=== PATIENT | female | born 1990 | race Caucasian/White ===

== ENCOUNTER → 2016-10-05 | Outpatient (CLI) | payer MEDICAID ==
[~2016-10-05] MED LIST: ACET50TA PO; ACET65TA OR; ANUS2.5C2 TOP; COLA100C3 PO; COLA50CA3 PO; IBUP40TA PO; MOM30SS PO; MOTR200T44 PO; NUPE1OIN2 TOP; No Historical Meds; Norco PO; PERC5TAB6 PO; PRENTAB66 PO; VITAPRTA PO
--- NOTE | 2016-10-06 08:12 | REP ---
RIGHT FINGERS, FOUR VIEWS: HISTORY: Thumb injury. There is no acute fracture or dislocation. The joint spaces are normal in appearance. IMPRESSION: There is no acute fracture or dislocation. Signed by Grzegorz Snider MD 10/06/2016 09:20 A
== END ==
LOC: M RAD 13:20
PROVIDERS: ATTEND Physician Assistant
DX: S69.81XA Other specified injuries of right wrist, hand and finger(s), initial encounter (principal); X58.XXXA Exposure to other specified factors, initial encounter; Y92.89 Other specified places as the place of occurrence of the external cause

== ENCOUNTER 2017-07-17 13:08 | Emergency (ER) | payer MEDICAID | END 2017-07-17 14:53 | disposition home or self-care (01) | LOC: M ED 13:08 | DX: J02.9 Acute pharyngitis, unspecified (principal) | CPT/HCPCS: 99283 ==

== ENCOUNTER 2017-11-01 22:19 | Emergency (ER) | payer SELFPAY, MEDICAID ==
[2017-11-02 00:30] LABS: AMORPHOUS SEDIMENT RFX SMALL (NEGATIVE); KETONE, URINE AUTO RFX NEGATIVE (NEGATIVE); LEUKOCYTE ESTERASE UR AUTO RFX NEGATIVE (NEGATIVE); MUCUS, URINE RFX SMALL (NEGATIVE); NITRITE, URINE AUTO RFX NEGATIVE (NEGATIVE); RBC, URINE AUTO RFX 7 /HPF (0-3); SPECIFIC GRAVITY UR AUTO RFX 1.018 (1.002-1.035); SQUAM EPITHELIAL CELL UR AURFX 1 /HPF (0-6); WBC, URINE AUTO RFX 1 /HPF (0-3)
[2017-11-02 00:37] LABS: HEMATOCRIT 33.6 % (36.0-47.0); HEMOGLOBIN 11.1 g/dl (12.0-15.5); MEAN CORPUSCULAR HEMOGLOBIN 26.6 pg (27.0-33.0); MEAN CORPUSCULAR VOLUME 80.4 fl (80.0-96.0); PLATELET COUNT, AUTOMATED 293 10^3/uL (150-450); RED BLOOD COUNT 4.18 10^6/uL (4.00-5.40); RED CELL DISTRIBUTION WIDTH 13.8 % (11.5-14.5); WHITE BLOOD COUNT 11.7 10^3/uL (4.0-10.0)
[2017-11-02 00:44] LABS: ADD MANUAL DIFFER YES; DIFF SLIDE NUMBER 74; POSITIVE DIFF POS FLAG
[2017-11-02] MEDS: KETOROLAC 30 MG/ML VIAL (J1885) IV (00:46)
[2017-11-02] MEDS: ONDANSETRON 4MG/2ML VIAL (J2405) IV (00:46)
[2017-11-02] MEDS: NS 1,000 ML IV (00:46)
[2017-11-02 00:59] LABS: ALBUMIN 3.8 GM/DL (3.2-5.2); ALBUMIN/GLOBULIN RATIO 1.06 (1.00-1.93); ALKALINE PHOSPHATASE 77 U/L (45-117); ALT/SGPT 23 U/L (12-78); AMYLASE 21 U/L (25-115); ANION GAP 5 MEQ/L (8-16); AST/SGOT 20 U/L (7-37); BILIRUBIN,DIRECT 0.1 MG/DL (0.0-0.2); BILIRUBIN,TOTAL 0.4 MG/DL (0.2-1.0); BLOOD UREA NITROGEN 13 MG/DL (7-18); CALCIUM LEVEL 8.6 MG/DL (8.5-10.1); CARBON DIOXIDE LEVEL 27 MEQ/L (21-32); CHLORIDE LEVEL 109 MEQ/L (98-107); GLOMERULAR FILTRATION RATE > 60.0 (>60); GLUCOSE, FASTING 89 MG/DL (70-100); LIPASE 150 U/L (73-393); POTASSIUM SERUM 3.4 MEQ/L (3.5-5.1); SODIUM LEVEL 141 MEQ/L (136-145); TOTAL PROTEIN 7.4 GM/DL (6.4-8.2)
[2017-11-02 01:02] LABS: EOSINOPHILS 2 % (0-5); LYMPHOCYTES 45 % (16-52); MONOCYTES 4 % (0-8); NEUTROPHILS 49 % (35-75); PLATELET ESTIMATE NORMAL (NORMAL)
== END 2017-11-02 02:41 | disposition home or self-care (01) ==
LOC: M ED 22:19
DX: K80.70 Calculus of gallbladder and bile duct without cholecystitis without obstruction (principal)
CPT/HCPCS: J2405

== ENCOUNTER 2017-11-28 09:27 | Day surgery (SDC) | payer SELFPAY, MEDICAID ==
[2017-11-28] MEDS: NS 1,000 ML IV ×3 (10:00→23:48)
[2017-11-28] MEDS: MORPHINE 4 MG/ML 1ML VIAL/SYRINGE (J2270) IV ×2 (10:02→11:46)
[2017-11-28] MEDS: METOCLOPRAMIDE INJ 10MG/2ML VIAL (J2765) IV (10:02)
[2017-11-28 10:05] LABS: AMORPHOUS SEDIMENT RFX SMALL (NEGATIVE); KETONE, URINE AUTO RFX TRACE mg/dL (NEGATIVE); LEUKOCYTE ESTERASE UR AUTO RFX NEGATIVE (NEGATIVE); MUCUS, URINE RFX SMALL (NEGATIVE); NITRITE, URINE AUTO RFX NEGATIVE (NEGATIVE); RBC, URINE AUTO RFX 5 /HPF (0-3); SPECIFIC GRAVITY UR AUTO RFX 1.016 (1.002-1.035); SQUAM EPITHELIAL CELL UR AURFX 0 /HPF (0-6); WBC, URINE AUTO RFX 2 /HPF (0-3)
[2017-11-28 10:23] LABS: BASO % 0.3 % (0.0-1.0); EOS % 0.3 % (0.0-3.0); HEMATOCRIT 38.8 % (36.0-47.0); HEMOGLOBIN 12.7 g/dl (12.0-15.5); IMMATURE GRANULOCYTE % 0.6 % (0-3.0); LYMPH # 1.6 10^3/uL (1.5-6.5); LYMPH % 10.7 % (24.0-44.0); MEAN CORPUSCULAR HEMOGLOBIN 26.2 pg (27.0-33.0); MEAN CORPUSCULAR HGB CONC 32.7 g/dl (32.0-36.5); MEAN CORPUSCULAR VOLUME 80.2 fl (80.0-96.0); MONO # 0.4 10^3/uL (0.0-0.8); MONO % 2.8 % (0.0-5.0); NEUTROPHILS # 12.3 10^3/uL (1.8-7.7); NEUTROPHILS % 85.3 % (36.0-66.0); PLATELET COUNT, AUTOMATED 311 10^3/uL (150-450); RED BLOOD COUNT 4.84 10^6/uL (4.00-5.40); RED CELL DISTRIBUTION WIDTH 13.4 % (11.5-14.5); WHITE BLOOD COUNT 14.5 10^3/uL (4.0-10.0)
[2017-11-28 10:52] LABS: ALBUMIN 4.1 GM/DL (3.2-5.2); ALBUMIN/GLOBULIN RATIO 0.98 (1.00-1.93); ALKALINE PHOSPHATASE 92 U/L (45-117); ALT/SGPT 35 U/L (12-78); AMYLASE 26 U/L (25-115); ANION GAP 9 MEQ/L (8-16); AST/SGOT 19 U/L (7-37); BILIRUBIN,DIRECT 0.1 MG/DL (0.0-0.2); BILIRUBIN,TOTAL 0.4 MG/DL (0.2-1.0); BLOOD UREA NITROGEN 14 MG/DL (7-18); CARBON DIOXIDE LEVEL 26 MEQ/L (21-32); CHLORIDE LEVEL 107 MEQ/L (98-107); CREATININE FOR GFR 0.85 MG/DL (0.55-1.30); GLOMERULAR FILTRATION RATE > 60.0 (>60); GLUCOSE, FASTING 126 MG/DL (70-100); LIPASE 121 U/L (73-393); POTASSIUM SERUM 3.9 MEQ/L (3.5-5.1); SODIUM LEVEL 142 MEQ/L (136-145); TOTAL PROTEIN 8.3 GM/DL (6.4-8.2)
[2017-11-28] MEDS: PIPERACILLIN/TAZOBACTAM SOD 3.375 GM in D5W MINI-BAG PLUS 50 ML IV ×3 (12:12→23:48)
[2017-11-28] MEDS ORDERED: fentaNYL 250 MCG/5 ML INJECTION (J3010) As Ordered (12:57)
[2017-11-28] MEDS ORDERED: PROPOFOL 200 MG/20 ML VIAL As Ordered (12:57)
[2017-11-28] MEDS ORDERED: LIDOCAINE 2% INJ 100 MG/5 ML SDV (FOR ANES.) As Ordered (12:57)
[2017-11-28] MEDS ORDERED: ROCURONIUM BROMIDE 50 MG/5 ML VIAL As Ordered (12:57)
[2017-11-28] MEDS ORDERED: MIDAZOLAM INJ 2 MG/2 ML VIAL (J2250) As Ordered (12:57)
[2017-11-28] MEDS ORDERED: KETOROLAC 60 MG/2 ML VIAL (J1885) As Ordered (12:58)
[2017-11-28] MEDS ORDERED: ONDANSETRON 4MG/2ML VIAL (J2405) As Ordered ×2 (12:58→13:23)
[2017-11-28] MEDS ORDERED: dexameTHASONE 4 MG/ML 1ML VIAL (J1100) As Ordered ×2 (12:58)
[2017-11-28 13:17] LABS: CONTROL LINE UCG INT CTR LINE PRESENT; URINE PREG TEST NEGATIVE (NEGATIVE)
[2017-11-28] MEDS ORDERED: SUCCINYLCHOLINE 100 MG/5 ML SYRINGE (J0330) As Ordered (13:42)
[2017-11-28] MEDS ORDERED: GLYCOPYRROLATE INJ 0.2 MG/ML 2 ML VIAL As Ordered (14:30)
[2017-11-28] MEDS ORDERED: NEOSTIGMINE 10 MG/10 ML VIAL (J2710) As Ordered (14:30)
[2017-11-28] MEDS: BUPIVACAINE/EPIN 0.25% 30 ML VIAL As Ordered (14:41)
[2017-11-28] MEDS ORDERED: MORPHINE 4 MG/ML 1ML VIAL/SYRINGE (J2270) IV (15:00)
[2017-11-28] MEDS ORDERED: NORCO, ANEXSIA 5/325MG TABLET (HYDROcodone/ACETAMINOPHEN) PO ×2 (15:00)
[2017-11-28] MEDS ORDERED: KETOROLAC 30 MG/ML VIAL (J1885) IV (15:00)
[2017-11-28] MEDS ORDERED: fentaNYL 100 MCG/2 ML INJECTION (J3010) IV (15:15)
[2017-11-28] MEDS ORDERED: ONDANSETRON 4MG/2ML VIAL (J2405) IV (15:15)
[2017-11-28] MEDS: LR 1,000 ML IV (15:58)
[2017-11-28] MEDS: PANTOPRAZOLE 40MG TAB (PROTONIX) PO (16:05)
[2017-11-28] MEDS: ONDANSETRON 4MG/2ML VIAL (J2405) IV (18:55)
[2017-11-29] MEDS: PIPERACILLIN/TAZOBACTAM SOD 3.375 GM in D5W MINI-BAG PLUS 50 ML IV (05:42)
[2017-11-29] MEDS: PANTOPRAZOLE 40MG TAB (PROTONIX) PO (08:23)
[2017-11-29] MEDS: NS 1,000 ML IV (08:23)
[2017-11-29] MEDS: AUGMENTIN 500 MG TAB PO (11:30)
== END 2017-11-29 13:10 | disposition home or self-care (01) ==
LOC: M SDC 11-29 13:10 → M ED 09:27 → M SDC 12:27 → M MS5PR 15:53
DX: K81.9 Cholecystitis, unspecified (principal); J45.909 Unspecified asthma, uncomplicated; E66.9 Obesity, unspecified; Z79.899 Other long term (current) drug therapy
CPT/HCPCS: 47562

== ENCOUNTER 2019-05-04 09:19 | Emergency (ER) | payer OTHER, SELFPAY ==
[~2019-05-04] VITALS: Ht 167.6 cm; Wt 111.0 kg
[~2019-05-04 09:19] MED LIST changes: -ACET50TA PO; +AMOX500T2 PO; +AMOX875T PO; -COLA100C3 PO; +COLA100C5 PO; +HYDR-3713 PO; +HYDR-3715 PO; +IBUP-1114 PO; -IBUP40TA PO; +MAPA500T17 PO; +MAPA500T2 PO; +PERC5TAB12 PO; -PERC5TAB6 PO; +ZOFR4TAB14 PO; +naproxen PO
[2019-05-04] MEDS ORDERED: KETOROLAC 30 MG/ML VIAL (J1885) IV ONE (10:00)
[2019-05-04] MEDS ORDERED: ONDANSETRON 4MG/2ML VIAL (J2405) IV ONE (10:00)
[2019-05-04 10:17] LABS: BASO % 0.3 % (0.0-1.0); EOS # 0.1 10^3/uL (0.0-0.5); EOS % 0.5 % (0.0-3.0); HEMOGLOBIN 13.9 g/dl (12.0-15.5); LYMPH # 2.5 10^3/uL (1.5-5.0); LYMPH % 19.7 % (24.0-44.0); MEAN CORPUSCULAR HGB CONC 32.3 g/dl (32.0-36.5); MEAN CORPUSCULAR VOLUME 80.5 fl (80.0-96.0); MONO # 0.7 10^3/uL (0.0-0.8); MONO % 5.3 % (0.0-5.0); NEUTROPHILS # 9.5 10^3/uL (1.5-8.5); NEUTROPHILS % 73.7 % (36.0-66.0); PLATELET COUNT, AUTOMATED 334 10^3/uL (150-450); RED BLOOD COUNT 5.34 10^6/uL (4.00-5.40); WHITE BLOOD COUNT 12.8 10^3/uL (4.0-10.0)
[2019-05-04] MEDS ORDERED: ISOVUE-370 76% 100ML VIAL (Q9967) As Ordered ONE (10:40)
[2019-05-04 10:49] LABS: ALBUMIN 4.1 GM/DL (3.2-5.2); BILIRUBIN,DIRECT 0.1 MG/DL (0.0-0.2); BILIRUBIN,TOTAL 0.6 MG/DL (0.2-1.0); TOTAL PROTEIN 8.4 GM/DL (6.4-8.2)
[2019-05-04] MEDS ORDERED: MORPHINE 2 MG/ML 1ML VIAL (J2270) IV ONE ×2 (11:00→13:00)
--- NOTE | 2019-05-04 12:35 | REP ---
Clinical: Flank pain. Technique: Axial noncontrast images from the lung bases to the pubic symphysis with coronal and sagittal re-formations. Findings: Moderate acute right-sided obstructive uropathy with edematous enlargement to the right kidney, perinephric/periureteral stranding, and hydronephrosis secondary to a 3 mm obstructing calculus in the proximal right ureter (images 85 - 86). Multiple nonobstructing bilateral renal calculi measure 1-2 mm. Left kidney is without hydronephrosis or obstruction. Bladder is unremarkable. Liver, spleen, pancreas, and bilateral adrenal glands are normal. Evidence of prior cholecystectomy. The enteric system is without obstruction or acute inflammatory process. Pelvis demonstrates normal uterus 6 cm adnexal cyst noted. No ascites. No free air. No adenopathy. Abdominal aorta without aneurysm. Musculoskeletal structures are intact. Lung bases are clear. Impression: 1. Moderate acute right-sided obstructive uropathy with a 3 mm calculus in the proximal right ureter. Multiple bilateral nonobstructing nephroliths measure up to 2 mm. 2. 6 cm pelvic/adnexal cyst warrants followup pelvic ultrasound. Electronically Signed by David Leon MD 05/04/2019 11:24 A
[2019-05-04] MEDS ORDERED: METOCLOPRAMIDE INJ 10MG/2ML VIAL (J2765) IV ONE (13:00)
[2019-05-04] MEDS ORDERED: MORPHINE 4 MG/ML 1ML VIAL/SYRINGE (J2270) IV ONE (14:15)
--- NOTE | 2019-05-04 14:40 | REP ---
PELVIC SONOGRAPHY: HISTORY: Abdominal pain. 6 cm right ovarian cyst seen on CT study. Comparison CT is from earlier this date. FINDINGS: Transabdominal and transvaginal scanning are included. Uterine dimensions are normal at 9.1 x 4.3 x 4.8 cm. Endometrial echo is 1.4 cm thick and centrally placed. The visualized urinary bladder dotson are smooth. There is a 6.5 x 6.7 x 5.0 cm sonographically simple cystic lesion in the left ovary. This corresponds to the CT findings. Inclusive of this, the left ovary measures 7.8 x 5.7 x 7.1 cm. Doppler flow is seen in the left ovary with resistive index by Doppler 0.56. A normal right ovary seen measuring 2.6 x 1.6 x 2.3 cm. Its Doppler flow is present resistive index 0.46. Comparison sonography from the November 28, 2010 showed a 5.8 cm simple cyst in the left adnexa as well. IMPRESSION: There is a 6.7 x 6.5 x 5.0 cm simple cyst in the left adnexa . No other significant sonographic findings. There is Doppler flow present in both ovaries. Electronically Signed by Abe Lopez MD 05/04/2019 02:47 P
[2019-05-04] MEDS ORDERED: PERCOCET 5MG/325MG TAB PO ONE (15:00)
[2019-05-04] MEDS ORDERED: PERC5TAB12 PO (15:08)
[2019-05-04] MEDS ORDERED: MACR100C43 PO (15:08)
[2019-05-04] MEDS ORDERED: ONDA4TAB6 PO (15:08)
[2019-05-04] MEDS ORDERED: FLOM0.4C39 PO (15:08)
[2019-05-04 15:24] VITALS: BP 148/91
--- NOTE | 2019-05-10 13:01 | ED PDOC ---
Post-Departure Follow-Up dr ruiz faxed formal report of pelvic us for fu Shannan Mayorga MD May 10, 2019 13:01
== END 2019-05-04 15:27 | disposition home or self-care (01) ==
LOC: M ED 09:19
DX: N20.2 Calculus of kidney with calculus of ureter (principal); R03.0 Elevated blood-pressure reading, without diagnosis of hypertension; N83.292 Other ovarian cyst, left side; Z79.899 Other long term (current) drug therapy
CPT/HCPCS: 74176; 76830; 76856; 80047; 80076; 81001; 83690; 85025; 87086; 93976; 96374; 96375; 96376; 99284; J1885; J2270; J2405; J2765

== ENCOUNTER → 2019-10-28 | Outpatient (REF) | payer OTHER ==
[~2019-10-28] MED LIST changes: +FLOM0.4C39 PO; +MACR100C43 PO; +ONDA4TAB6 PO
[2019-10-28 13:13] LABS: BASO % 0.3 % (0.0-1.0); EOS # 0.1 10^3/uL (0.0-0.5); EOS % 1.4 % (0.0-3.0); HEMATOCRIT 35.8 % (36.0-47.0); HEMOGLOBIN 11.8 g/dl (12.0-15.5); LYMPH # 2.5 10^3/uL (1.5-5.0); LYMPH % 27.7 % (24.0-44.0); MEAN CORPUSCULAR VOLUME 81.9 fl (80.0-96.0); MONO # 0.5 10^3/uL (0.0-0.8); MONO % 5.9 % (0.0-5.0); NEUTROPHILS # 5.9 10^3/uL (1.5-8.5); NEUTROPHILS % 64.4 % (36.0-66.0); PLATELET COUNT, AUTOMATED 246 10^3/uL (150-450); RED BLOOD COUNT 4.37 10^6/uL (4.00-5.40); WHITE BLOOD COUNT 9.2 10^3/uL (4.0-10.0)
[2019-10-28 20:41] LABS: FREE T4 1.03 NG/DL (0.76-1.46); HCG, SERUM QUANTITATIVE 59026 MIU/ML
[2019-10-29 12:12] LABS: HIV 1&2 SCREEN CENTAUR NEGATIVE (NEGATIVE)
== END ==
LOC: M LAB REF 12:08
PROVIDERS: ATTEND Obstetrics & Gynecology
DX: O36.80X0 Pregnancy with inconclusive fetal viability, not applicable or unspecified (principal)

== ENCOUNTER → 2019-10-29 | Outpatient (CLI) | payer OTHER ==
--- NOTE | 2019-10-29 14:36 | REP ---
OBSTETRIC SONOGRAPHY: HISTORY: Supervision of . FINDINGS: Transabdominal scanning demonstrates a single living intrauterine fetus. motion is observed and heart rate is recorded at 163 beats per minute. A anterofundal placenta is seen without evidence of abruption. Amniotic fluid is subjectively normal. No extrauterine abnormality observed. The crown-rump length of the embryonic pole is 51 mm. This corresponds with a gestational age estimate of 11-week 6 days. No extrauterine abnormality observed. No gross anomaly is seen. IMPRESSION: Viable single intrauterine gestation 11 weeks 6 days by crown-rump length. GASTON by sonography May 13, 2020. No complications seen.
== END ==
LOC: M WHC 10:43
PROVIDERS: ATTEND Obstetrics & Gynecology
DX: Z36.89 Encounter for other specified antenatal screening (principal); Z3A.11 11 weeks gestation of pregnancy

== ENCOUNTER → 2019-11-04 | Outpatient (CLI) | payer OTHER ==
[2019-11-04 12:37] LABS: CREATININE 24 HOUR, URINE 2421.5 MG/24HR (600-1800); TOTAL PROTEIN 24 HOUR URINE 368.3 MG/24HR (50-150); URINE TOTAL PROTEIN 25.4 MG/DL (0-12)
[2019-11-04 12:42] LABS: ALBUMIN 3.4 GM/DL (3.2-5.2); ALT/SGPT 20 U/L (12-78); BILIRUBIN,TOTAL 0.4 MG/DL (0.2-1.0); BLOOD UREA NITROGEN 9 MG/DL (7-18); CALCIUM LEVEL 9.3 MG/DL (8.5-10.1); CARBON DIOXIDE LEVEL 24 MEQ/L (21-32); CHLORIDE LEVEL 108 MEQ/L (98-107); CREATININE FOR GFR 0.68 MG/DL (0.55-1.30); GLOMERULAR FILTRATION RATE > 60.0 (>60); GLUCOSE, FASTING 89 MG/DL (70-100); POTASSIUM SERUM 3.9 MEQ/L (3.5-5.1); SODIUM LEVEL 139 MEQ/L (136-145); TOTAL PROTEIN 7.2 GM/DL (6.4-8.2)
== END ==
LOC: M LAB 11:18
PROVIDERS: ATTEND Obstetrics & Gynecology
DX: I15.9 Secondary hypertension, unspecified (principal)

== ENCOUNTER → 2019-12-27 | Outpatient (CLI) | payer OTHER ==
[~2019-12-27] MED LIST changes: +LABE300T2 PO
--- NOTE | 2019-12-27 12:22 | REP ---
OBSTETRIC SONOGRAPHY: HISTORY: Supervision of for anatomy. FINDINGS: Scanning through the gravid uterus demonstrates a living single intrauterine gestation in a changing lie, transverse, head left at the close of the study. heart rate is recorded at 139 beats per minute. An anterior grade 0 placenta is seen without evidence of previa. Amniotic fluid is subjectively normal. Closed cervical length measured transabdominally is 3.8 cm. No extrauterine abnormalities observed. Exam quality is inhibited to some degree by position and maternal body habitus. Four-chamber heart, right ventricular outflow tract views, and spine are less than optimally seen. The following anatomic structures are identified and felt to be unremarkable: cranium, choroid plexus, cavum, cerebellum and posterior fossa, face and profile, left ventricular outflow tract view, diaphragm, left-sided stomach, abdominal wall cord insertion, three-vessel cord, kidneys and bladder, upper and lower extremities. Biometry Chart: BPD 4.7 cm = 20 weeks 2 days HC 17.9 cm = 20 weeks 2 days AC 15.1 cm = 20 weeks 2 days FL 3.3 cm = 20 weeks 3 days HL 3.1 cm = 20 weeks 3 days CD 2.0 cm = 19 weeks 2 days HC/AC ratio normal 1.18 Cephalic index normal 0.73. Estimated weight through 50 grams, 0 pounds 12 ounces, 60th percentile for 20 weeks 0 days. IMPRESSION: Single living intrauterine gestation at 20 weeks 1 day by today's composite sonographic criteria. Expected gestational age estimate based on prior sonography is 20 weeks 0 days. GASTON by prior sonography May 15, 2020. anatomic survey is incomplete regarding right ventricular outflow tract, four-chamber heart, and spine visualization.
== END ==
LOC: M WHC 10:19
PROVIDERS: ATTEND Obstetrics & Gynecology
DX: Z34.82 Encounter for supervision of other normal pregnancy, second trimester (principal); Z3A.20 20 weeks gestation of pregnancy

== ENCOUNTER → 2020-01-17 | Outpatient (CLI) | payer OTHER ==
--- NOTE | 2020-03-03 14:42 | REP ---
OB ULTRASOUND NOTE: The study was performed 01/17/2020 and is submitted for interpretation of 02/16/2020 due to catastrophic computer system failure at [facility]. REASON FOR EXAM: Follow-up anatomy scan of 12/27/2019. TECHNIQUE: Real-time sonographic evaluation of gravid uterus performed. There is a single living intrauterine gestation. Based on todays ultrasound measurements, composite estimated gestational age is 23 weeks 1 day. MEASUREMENTS: BPD 57 mm 23 weeks 4 days Head Circumference 181 mm 23 weeks 0 days HC 208 mm 23 weeks 0 days Femur Length 40 mm 23 weeks 0 days Estimated weight 552 grams. This is reportedly at 42nd percentile. Amniotic fluid appears within normal limits. The cervix is closed and measures 3.4 cm in length. The spine, four chamber heart, and ventricular outflow tracts are visualized on todays exam and are grossly unremarkable. They were not well seen on the prior study. Todays study is somewhat limited due to maternal body habitus. position is transverse. Placenta is posterior and grade 0 with no previa or abruption. MTDD
== END ==
LOC: M WHC 05:55
PROVIDERS: ATTEND Obstetrics & Gynecology
DX: Z34.82 Encounter for supervision of other normal pregnancy, second trimester (principal); Z36.2 Encounter for other antenatal screening follow-up; Z3A.23 23 weeks gestation of pregnancy

== ENCOUNTER → 2020-02-24 | Outpatient (CLI) | payer OTHER ==
[2020-02-24 13:13] LABS: HEMATOCRIT 32.9 % (36.0-47.0); HEMOGLOBIN 10.9 g/dl (12.0-15.5); MEAN CORPUSCULAR HEMOGLOBIN 28.7 pg (27.0-33.0); MEAN CORPUSCULAR HGB CONC 33.1 g/dl (32.0-36.5); MEAN CORPUSCULAR VOLUME 86.6 fl (80.0-96.0); PLATELET COUNT, AUTOMATED 294 10^3/uL (150-450); WHITE BLOOD COUNT 11.1 10^3/uL (4.0-10.0)
== END ==
LOC: M LAB 09:47
PROVIDERS: ATTEND Obstetrics & Gynecology
DX: Z34.83 Encounter for supervision of other normal pregnancy, third trimester (principal); Z3A.00 Weeks of gestation of pregnancy not specified

== ENCOUNTER → 2020-03-16 | Outpatient (CLI) | payer OTHER | LOC: M LAB 10:16 | PROVIDERS: ATTEND Advanced Practice Midwife | DX: Z34.82 Encounter for supervision of other normal pregnancy, second trimester (principal); Z3A.00 Weeks of gestation of pregnancy not specified ==

== ENCOUNTER 2020-03-20 13:58 | Outpatient (CLI) | payer OTHER ==
[~2020-03-20] VITALS: Ht 167.6 cm; Wt 114.3 kg
[~2020-03-20 13:58] MED LIST changes: -LABE300T2 PO
[2020-03-20 14:21] VITALS: BP 157/84
[2020-03-20 14:26] VITALS: BP 160/81
[2020-03-20] MEDS ORDERED: LR 1,000 ML IV ONE (14:45)
[2020-03-20 14:54] LABS: APPEARANCE, URINE HAZY (CLEAR); BACTERIA, URINE AUTO NEGATIVE (NEGATIVE); BILIRUBIN, URINE AUTO NEGATIVE (NEGATIVE); BLOOD, URINE BLOOD 2+ (NEGATIVE); COLOR, URINE YELLOW (YELLOW); GLUCOSE, URINE (UA) AUTO NEGATIVE (NEGATIVE); KETONE, URINE AUTO NEGATIVE (NEGATIVE); LEUKOCYTE ESTERASE, URINE AUTO NEGATIVE (NEGATIVE); MUCUS, URINE SMALL (NEGATIVE); NITRITE, URINE AUTO NEGATIVE (NEGATIVE); PROTEIN, URINE AUTO 1+ mg/dL (NEGATIVE); RBC, URINE AUTO 60 /HPF (0-3); SPECIFIC GRAVITY URINE AUTO 1.025 (1.002-1.035); SQUAMOUS EPITHELIAL CELL UR AU 9 /HPF (0-6); UROBILINOGEN, URINE AUTO 0.2 mg/dL (0.0-2.0); WBC, URINE AUTO 5 /HPF (0-3)
[2020-03-20 15:08] LABS: BASO # 0.1 10^3/uL (0.0-0.2); BASO % 0.3 % (0.0-1.0); EOS # 0.1 10^3/uL (0.0-0.5); EOS % 0.8 % (0.0-3.0); HEMOGLOBIN 10.8 g/dl (12.0-15.5); LYMPH # 2.3 10^3/uL (1.5-5.0); LYMPH % 14.5 % (24.0-44.0); MEAN CORPUSCULAR HEMOGLOBIN 28.3 pg (27.0-33.0); MEAN CORPUSCULAR HGB CONC 33.8 g/dl (32.0-36.5); MEAN CORPUSCULAR VOLUME 83.8 fl (80.0-96.0); MONO % 6.7 % (0.0-5.0); PLATELET COUNT, AUTOMATED 252 10^3/uL (150-450); RED BLOOD COUNT 3.82 10^6/uL (4.00-5.40); WHITE BLOOD COUNT 15.6 10^3/uL (4.0-10.0)
[2020-03-20] MEDS ORDERED: MAPA500T2 PO (15:38)
[2020-03-20] MEDS ORDERED: LABE300T2 PO (15:39)
== END 2020-03-20 16:27 | disposition home or self-care (01) ==
LOC: M LDO 13:58
PROVIDERS: ATTEND Obstetrics & Gynecology
DX: O99.891 Other specified diseases and conditions complicating pregnancy (principal); O23.43 Unspecified infection of urinary tract in pregnancy, third trimester; Z3A.32 32 weeks gestation of pregnancy

== ENCOUNTER → 2020-04-06 | Outpatient (CLI) | payer OTHER ==
[~2020-04-06] MED LIST changes: +LABE300T2 PO
[2020-04-06 08:47] LABS: HEMATOCRIT 30.2 % (36.0-47.0); HEMOGLOBIN 9.8 g/dl (12.0-15.5); MEAN CORPUSCULAR HEMOGLOBIN 27.7 pg (27.0-33.0); MEAN CORPUSCULAR HGB CONC 32.5 g/dl (32.0-36.5); MEAN CORPUSCULAR VOLUME 85.3 fl (80.0-96.0); PLATELET COUNT, AUTOMATED 316 10^3/uL (150-450); RED BLOOD COUNT 3.54 10^6/uL (4.00-5.40); WHITE BLOOD COUNT 10.5 10^3/uL (4.0-10.0)
[2020-04-06 09:16] LABS: URINE TOTAL PROTEIN 31.7 MG/DL (0-12)
[2020-04-06 09:19] LABS: ALT/SGPT 11 U/L (12-78); BILIRUBIN,TOTAL 0.3 MG/DL (0.2-1.0); CREATININE FOR GFR 0.73 MG/DL (0.55-1.30); GLOMERULAR FILTRATION RATE > 60.0 (>60); LDH LACTATE DEHYDROGENASE 131 U/L (84-246); URIC ACID 4.4 MG/DL (2.6-6.0)
[2020-04-06 14:39] LABS: CREATININE 24 HOUR, URINE 2371.5 MG/24HR (600-1800); TOTAL PROTEIN 24 HOUR URINE 491.3 MG/24HR (50-150)
== END ==
LOC: M LAB 08:15
PROVIDERS: ATTEND Advanced Practice Midwife
DX: O12.13 Gestational proteinuria, third trimester (principal); Z3A.00 Weeks of gestation of pregnancy not specified

== ENCOUNTER → 2020-04-11 | Outpatient (REF) | payer OTHER | LOC: M LAB REF 17:04 | PROVIDERS: ATTEND Obstetrics & Gynecology | DX: Z34.83 Encounter for supervision of other normal pregnancy, third trimester (principal); Z3A.00 Weeks of gestation of pregnancy not specified ==

== ENCOUNTER 2020-05-17 10:51 | Inpatient (IN) | payer OTHER ==
[~2020-05-17] VITALS: Ht 167.6 cm; Wt 115.0 kg
[2020-05-17] VITALS (10 sets, daily range): BP systolic 139–190; BP diastolic 75–101
[2020-05-17] MEDS ORDERED: LACTATED RINGERS IV ONE (11:30)
[2020-05-17 12:28] LABS: HEMATOCRIT 31.5 % (36.0-47.0); HEMOGLOBIN 10.2 g/dl (12.0-15.5); MEAN CORPUSCULAR HEMOGLOBIN 27.6 pg (27.0-33.0); MEAN CORPUSCULAR HGB CONC 32.4 g/dl (32.0-36.5); MEAN CORPUSCULAR VOLUME 85.4 fl (80.0-96.0); PLATELET COUNT, AUTOMATED 283 10^3/uL (150-450); RED BLOOD COUNT 3.69 10^6/uL (4.00-5.40); WHITE BLOOD COUNT 12.8 10^3/uL (4.0-10.0)
[2020-05-17] MEDS ORDERED: LR 1,000 ML IV SCH (12:30)
[2020-05-17 12:53] LABS: ALT/SGPT 14 U/L (12-78); BILIRUBIN,TOTAL 0.3 MG/DL (0.2-1.0); CREATININE FOR GFR 0.73 MG/DL (0.55-1.30); GLOMERULAR FILTRATION RATE > 60.0 (>60); LDH LACTATE DEHYDROGENASE 174 U/L (84-246); URIC ACID 4.2 MG/DL (2.6-6.0)
[2020-05-17] MEDS: miSOPROStol 50 MCG 1/2 TAB (S0191) PO SCH ×2 (13:28→19:10)
[2020-05-17] MEDS: LABETALOL 100 MG TAB PO SCH ×2 (13:49→21:14)
[2020-05-17] MEDS ORDERED: ceFAZolin SOD 2 GM in IV 1 EA IV ONE (22:15)
[2020-05-17] MEDS ORDERED: BICITRA 30ML SOLN UDC PO ONE (22:15)
[2020-05-17] MEDS ORDERED: BICITRA 30ML SOLN UDC As Ordered ONE (22:22)
[2020-05-17] MEDS ORDERED: ceFAZolin 2 GM/D5W 50 ML IV BAG (J0690 PER 500MG) As Ordered ONE (22:22)
[2020-05-17] MEDS ORDERED: ONDANSETRON 4MG/2ML VIAL As Ordered ONE (22:30)
[2020-05-17] MEDS ORDERED: dexameTHASONE 4 MG/ML 1ML VIAL (J1100 PER 1MG) As Ordered ONE (22:30)
[2020-05-17] MEDS ORDERED: OXYTOCIN INJ 10 UNITS/ML VIAL (J2590) As Ordered ONE (22:30)
[2020-05-17] MEDS ORDERED: MORPHINE PRES-FREE INJ 10 MG/10 ML VIAL (J2274) As Ordered ONE (22:33)
[2020-05-17] MEDS ORDERED: fentaNYL 100 MCG/2 ML INJECTION (J3010) As Ordered ONE (22:33)
[2020-05-17] MEDS ORDERED: OXYTOCIN DRIP 30 UNITS in IV 1 EA IV SCH (22:47)
[2020-05-17] MEDS ORDERED: ONDANSETRON 4MG/2ML VIAL IV PRN (22:56)
[2020-05-17] MEDS ORDERED: NALBUPHINE HCL 10 MG/ML AMP (J2300) IV PRN (22:56)
[2020-05-17] MEDS ORDERED: NALOXONE INJ 0.4MG/1ML VIAL (J2310 PER 1MG) IV PRN ×2 (22:56)
[2020-05-17] MEDS ORDERED: diphenhydrAMINE 50MG/ML VIAL (J1200) IV PRN (22:56)
[2020-05-17] MEDS ORDERED: METHYLERGONOVINE MALEATE 0.2 MG TAB PO PRN (23:00)
[2020-05-17] MEDS ORDERED: PERCOCET 5MG/325MG TAB PO PRN (23:00)
[2020-05-17] MEDS ORDERED: MOM 30ML SUSPENSION UDC PO PRN (23:00)
[2020-05-17] MEDS ORDERED: RHOGAM 300 MCG (1500 IU) INJ (J2790) IM SCH (23:00)
[2020-05-17] MEDS ORDERED: MEASLES,MUMPS,RUBELLA VACCINE INJ (MMR-II) (90707) SC SCH (23:00)
[2020-05-17] MEDS ORDERED: ePHEDrine SULFATE 25 MG/5 ML(5MG/ML) SYRINGE As Ordered ONE (23:01)
[2020-05-17 23:32] LABS: CORD GAS HCO3 A 25.4 MEQ/L; CORD GAS O2 SAT A 28.8 %; CORD GAS PCO2 A 58.9 mmHg; CORD GAS PH A 7.252 UNITS; CORD GAS PO2 A 16.3 mmHg; CORD GAS SBC A 20.4 MEQ/L; CORD GAS TCO2 A 27.2 MEQ/L
[2020-05-17 23:33] LABS: CORD GAS ABE V -4.8; CORD GAS HCO3 V 20.3 MEQ/L; CORD GAS O2 SAT V 80.9 %; CORD GAS PH V 7.346 UNITS; CORD GAS PO2 V 36.6 mmHg; CORD GAS SBC V 20.2 MEQ/L; CORD GAS TCO2 V 21.5 MEQ/L
[2020-05-18] VITALS (11 sets, daily range): BP systolic 119–149; BP diastolic 65–92
[2020-05-18] MEDS ORDERED: OXYTOCIN 30 UNITS IN 0.9% NaCl 500ML IV BAG (J2590) As Ordered ONE (00:21)
[2020-05-18] MEDS ORDERED: METOCLOPRAMIDE INJ 10MG/2ML VIAL (J2765 PER 1) As Ordered ONE (00:52)
[2020-05-18] MEDS: METOCLOPRAMIDE INJ 10MG/2ML VIAL (J2765 PER 1) IV PRN ×2 (00:55→08:41)
[2020-05-18] MEDS ORDERED: LR 1,000 ML IV SCH (05:15)
[2020-05-18 08:13] LABS: HEMATOCRIT 28.2 % (36.0-47.0); MEAN CORPUSCULAR HEMOGLOBIN 27.8 pg (27.0-33.0); MEAN CORPUSCULAR HGB CONC 31.9 g/dl (32.0-36.5); PLATELET COUNT, AUTOMATED 238 10^3/uL (150-450); RED BLOOD COUNT 3.24 10^6/uL (4.00-5.40); WHITE BLOOD COUNT 14.7 10^3/uL (4.0-10.0)
--- NOTE | 2020-05-18 08:15 | HPE ---
HISTORY AND PHYSICAL DATE OF ADMISSION: 05/17/2020 HISTORY OF PRESENT ILLNESS: Ginny is a 29-year-old female 3 para 2-0-0-2 with an EDC of 05/15/20, EGA 40 and 2/7 weeks gestation, is being admitted for induction. Upon admission, no bleeding, no leakage of fluid, good movement. Her records are reviewed which were essentially unremarkable. LAB: Blood type O+. Rubella immune. Hepatitis negative. HIV negative. GC/Chlamydia negative. One-hour sugar testing was within normal limits. Her GBS is negative. PAST MEDICAL HISTORY: Significant for hypertension. PAST SURGICAL HISTORY: Cholecystectomy. SOCIAL HISTORY: She denies any alcohol, drugs or cigarette smoking. REVIEW OF SYSTEMS: Unremarkable. MEDICATIONS: vitamin and Labetalol 300 mg b.i.d. FAMILY HISTORY: Significant for seizure disorder, migraine, kidney disease and high blood pressures as well as hypertension. PHYSICAL EXAMINATION: An obese female in no acute distress. Abdomen: Soft, nontender, nondistended. Extremities: No clubbing, cyanosis or edema. Vaginal exam: Thick, closed and posterior, fetus in a vertex position. Tracing reviewed. Minimal variability, good accelerations. No contractions noted. ASSESSMENT: 1. Intrauterine at 40 and 2/7 weeks gestation being admitted for induction. 2. Chronic hypertension, on Labetalol. PLAN: Admit to Labor and Delivery. Induction process discussed with the patient. A decision made to proceed with Cytotec induction as we do not have Cervidil available at this hospital. The risks and benefits discussed with the patient in great detail. Will continue to monitor and proceed with the induction. cc: [facility]
[2020-05-18] MEDS: DOCUSATE SODIUM 100MG CAPSULE PO SCH ×2 (09:00→21:07)
[2020-05-18] MEDS: PRENATAL VITAMINS CHEWABLE TABLET PO SCH (09:00)
--- NOTE | 2020-05-18 09:38 | RO ---
OPERATIVE NOTE DATE OF OPERATION: 05/17/2020 Ginny is a 29-year-old female, 3, para 2-0-0-2, who was admitted at 40 and 2/7 weeks gestation for induction. She had one dose of Cytotec with nonreassuring heart rate tracing with minimal to decreased variability and some occasional decels. She was monitored for a period of time. Tracing had slightly improved. She got a second dose of Cytotec and continued to have deceleration. We were unable to rupture her as the cervix was still closed and very thick and posterior. After a period of monitoring, a decision was made to proceed with delivery via section. The patient also desires permanent tubal sterilization. PREOPERATIVE DIAGNOSIS: 1. Post-term with a nonreassuring heart rate tracing. 2. Desires permanent tubal sterilization. 3. Chronic hypertension on labetalol. POSTOPERATIVE DIAGNOSIS: 1. Post-term with a nonreassuring heart rate tracing. 2. Desires permanent tubal sterilization. 3. Chronic hypertension on labetalol. 4. Nuchal cord x1, cord wrapped around the left arm. 5. Left ovarian cyst. PROCEDURE: Primary low transverse section via Pfannenstiel incision. Bilateral salpingectomies. Left ovarian cystectomy. SURGEON: Srinath Lee DO LUMBER RACKER: Shakira Ackerman CNM COMPLICATIONS: None. ESTIMATED BLOOD LOSS: 600 mL ANESTHESIA: Spinal. FINDINGS: Live female infant in occiput transverse position with a nuchal x1 and a cord wrapped around the left arm, Apgars 7-8, weight 5 lb, 6 oz. A left ovarian simple cyst noted approximately 4-5 cm in size. Normal appearing tubes and ovaries. PROCEDURE: After obtaining informed consent, the patient was taken to the operating room where spinal anesthetic was found to be adequate. She was then draped and prepped in the usual sterile fashion in the supine position. At this point, a Pfannenstiel incision was made with the first knife with the help of Fabi Ackerman. This was carried down to the fascia. The fascia was incised in a midline fashion and carried through laterally. The superior aspect of the fascia was then grasped with a Eli clamp, tented off and dissected off the rectus muscles sharply. The inferior aspect was dissected off in a similar fashion. Then rectus muscles were in midline fashion. The peritoneum was identified. The peritoneal cavity was entered bluntly. Superior and inferior dissection of the peritoneum was then done with good visualization of the bladder. At this point, a Mobius skin retractor was placed. A low transverse uterine incision was made. The was delivered in atraumatic fashion. The nose and mouth were bulb suctioned. The cord was doubly clamped and cut and the infant was handed over to the awaiting warmer. Cord blood and cord gas were sent. The placenta was removed manually. The uterus was cleared of all clot and debris and the uterine incision was then repaired in two separate layers of 0 Vicryl sutures. At this point, attention was then turned to the adnexa where the left ovarian cyst was noted and given that we were doing a tubal ligation, the tubes as well as the ovarian cyst was held with a Eleazar. Two Lara clamps were placed across the mesosalpinx as well as the cyst and the cyst as well as the tube was removed and sent to pathology. The mesosalpinx was then suture ligated using 3-0 Vicryl. Good hemostasis noted. Attention turned to the right side where the fimbriated end of the right tube was identified and in a similar fashion, two Kellys were placed on the mesosalpinx of the tube and the entire tube was removed and sent to pathology and the mesosalpinx was then closed using 3-0 Vicryl suture. The pelvis was copiously irrigated with normal saline and suctioned out. Attention turned to the peritoneum which was closed in a running fashion using 2-0 Vicryl. The fascia was closed in two separate segments of 0 Vicryl sutures. All superficial bleeders were coagulated and the skin was then reapproximated in a subcuticular fashion using 3-0 Vicryl on a Placido. Steri-Strips were placed. The patient tolerated the procedure well. She was then transferred to recovery room in stable condition. [facility]
[2020-05-18] MEDS: LABETALOL 100 MG TAB PO SCH ×2 (09:48→21:07)
[2020-05-18] MEDS: IBUPROFEN 800 MG TAB PO PRN (21:03)
[2020-05-19 02:00] VITALS: BP 134/68
[2020-05-19 06:00] VITALS: BP 142/82
[2020-05-19] MEDS: IBUPROFEN 800 MG TAB PO PRN (06:12)
[2020-05-19] MEDS ORDERED: LABE100T4 PO (07:39)
[2020-05-19] MEDS ORDERED: PERCOCET PO (07:39)
--- NOTE | 2020-05-19 07:55 | OBDS ---
[facility] Obstetrical Discharge Sum. Obstetrical Discharge Summary Date: May 19, 2020 : 3 Term: 2 Pre-term: 0 Abortions: 0 Livin VDRL: Non-Reactive Rubella: Immune A/P, Post Course List any complications Admission diagnosis: Postterm with Non-reassuring heart rate tracing; Desires permanent tubal sterilization; CHTN. Discharge diagnosis: same Condition at Discharge: [stable] Discharge Instructions: Nothing in the vagina for 6 weeks] Activity: [as tolerated ] Diet: [regular] Medications: [see list] Follow-up: [2 weeks] Other: Srinath Lee DO May 19, 2020 07:53
[2020-05-19] MEDS ORDERED: INFLUENZA QUADRIVALENT PF VACCINE 0.5ML SYRINGE IM ONE (09:00)
[2020-05-19] MEDS ORDERED: BOOSTRIX/ADACEL VACCINE (DIPHTH/PERTUSS/ACELL/TETANUS) 0.5ML SYR IM ONE (09:00)
[2020-05-19 10:31] VITALS: BP 170/92
[2020-05-19 10:36] VITALS: BP 170/92
[2020-05-19] MEDS: PRENATAL VITAMINS CHEWABLE TABLET PO SCH (10:36)
[2020-05-19] MEDS: LABETALOL 100 MG TAB PO SCH (10:36)
[2020-05-19] MEDS: DOCUSATE SODIUM 100MG CAPSULE PO SCH (10:37)
== END 2020-05-19 12:35 | disposition home or self-care (01) | DRG 540 ==
LOC: M LDI 10:51 → M OBS 05-18 01:22
PROVIDERS: ADMIT Obstetrics & Gynecology; ATTEND Obstetrics & Gynecology
PROC: 0UB70ZZ Excision of Bilateral Fallopian Tubes, Open Approach (ICD-10-PCS; 2020-05-17)
PROC: 0UB10ZZ Excision of Left Ovary, Open Approach (ICD-10-PCS; 2020-05-17)
PROC: 3E0P7GC Introduction of Other Therapeutic Substance into Female Reproductive, Via Natural or Artificial Opening (ICD-10-PCS; 2020-05-17)
PROC: 10D00Z1 Extraction of Products of Conception, Low, Open Approach (ICD-10-PCS; principal; 2020-05-17 22:22)
DX: O48.0 Post-term pregnancy (principal); Z3A.40 40 weeks gestation of pregnancy; O76 Abnormality in fetal heart rate and rhythm complicating labor and delivery; O10.02 Pre-existing essential hypertension complicating childbirth; Z30.2 Encounter for sterilization; N83.202 Unspecified ovarian cyst, left side; O34.83 Maternal care for other abnormalities of pelvic organs, third trimester; O69.82X0 Labor and delivery complicated by other cord entanglement, without compression, not applicable or unspecified; Z37.0 Single live birth

== ENCOUNTER → 2022-10-30 | Outpatient (CLI) | payer OTHER ==
[~2022-10-30] MED LIST changes: +LABE100T6 PO; -LABE300T2 PO; +LABE300T55 PO; +PERCOCET PO
[2022-10-30 11:30] LABS: BASO % 0.4 % (0.0-1.0); EOS # 0.2 10^3/uL (0.0-0.5); EOS % 2.1 % (0.0-3.0); HEMATOCRIT 40.4 % (36.0-47.0); HEMOGLOBIN 12.6 g/dl (12.0-15.5); LYMPH % 32.7 % (24.0-44.0); MEAN CORPUSCULAR HEMOGLOBIN 25.9 pg (27.0-33.0); MEAN CORPUSCULAR HGB CONC 31.2 g/dl (32.0-36.5); MONO # 0.6 10^3/uL (0.0-0.8); MONO % 6.6 % (2.0-8.0); NEUTROPHILS # 5.3 10^3/uL (1.5-8.5); NEUTROPHILS % 57.8 % (36.0-66.0); PLATELET COUNT, AUTOMATED 344 10^3/uL (150-450); RED BLOOD COUNT 4.87 10^6/uL (4.00-5.40); WHITE BLOOD COUNT 9.2 10^3/uL (4.0-10.0)
[2022-10-30 11:57] LABS: HEMOGLOBIN A1c 5.6 % (4.0-6.0)
[2022-10-30 11:58] LABS: ALBUMIN 3.9 G/DL (3.2-5.2); ALKALINE PHOSPHATASE 80 U/L (46-116); ALT/SGPT 25 U/L (7.0-40); AST/SGOT 21 U/L (<34); BILIRUBIN,TOTAL 0.3 MG/DL (0.3-1.2); BLOOD UREA NITROGEN 20 MG/DL (9-23); CALCIUM LEVEL 9.4 MG/DL (8.5-10.1); CARBON DIOXIDE LEVEL 28 MMOL/L (20-31); CHLORIDE LEVEL 106 MMOL/L (98-107); CHOLESTEROL LEVEL 155 MG/DL (<200); CHOLESTEROL RISK RATIO 3.16 (<5); CREATININE FOR GFR 0.84 MG/DL (0.55-1.30); GLOMERULAR FILTRATION RATE > 60.0 (>60); GLUCOSE, FASTING 99 MG/DL (60-100); HDL CHOLESTEROL 48.9 MG/DL (>40); LDL CHOLESTEROL 91.5 MG/DL (<100); NON-HDL-C 106.1 MG/DL; POTASSIUM SERUM 4.7 MMOL/L (3.5-5.1); SODIUM LEVEL 141 MMOL/L (136-145); TOTAL PROTEIN 7.4 G/DL (5.7-8.2); TRIGLYCERIDES LEVEL 73 MG/DL (<150)
[2022-10-30 11:59] LABS: THYROID STIMULATING HORMONE 2.179 uIU/ML (0.55-4.78); TOTAL 25(OH) VITAMIN D 23.9 NG/ML (20.0-100.0)
[2022-10-30 12:00] LABS: FREE T4 0.95 NG/DL (0.89-1.76)
== END ==
LOC: M LAB 10:28
PROVIDERS: ATTEND Nurse Practitioner Family
DX: R63.5 Abnormal weight gain (principal); E55.9 Vitamin D deficiency, unspecified; Z13.1 Encounter for screening for diabetes mellitus; Z13.220 Encounter for screening for lipoid disorders